=== PATIENT | male | born 1950 | race Caucasian/White ===

== ENCOUNTER 2016-08-08 03:44 | Inpatient (IN) | payer MEDICARE, OTHER ==
[2016-08-08] VITALS (7 sets, daily range): BP systolic 126–164; BP diastolic 57–78
[~2016-08-08] VITALS: Ht 162.6 cm; Wt 59.0 kg
[2016-08-08] MEDS ORDERED: Dicyclomine HCl 10mg/5ml oral soln ORAL ONE (04:00)
[2016-08-08] MEDS ORDERED: Mylanta II UD 30ml ORAL ONE (04:00)
[2016-08-08] MEDS ORDERED: VITAMIN D400 INTLU ORAL (04:04)
[2016-08-08] MEDS ORDERED: METRONIDAZOLE500 MG ORAL (04:04)
[2016-08-08] MEDS ORDERED: PLAVIX75 MG ORAL (04:04)
[2016-08-08] MEDS ORDERED: LOSARTAN POTASS50 MG ORAL (04:04)
[2016-08-08] MEDS ORDERED: COQ-1030 M1 PO (04:04)
[2016-08-08] MEDS ORDERED: VASCEPA1 GM PO (04:04)
[2016-08-08] MEDS ORDERED: CRESTOR20 MG ORAL (04:04)
[2016-08-08] MEDS ORDERED: SYNTHROID25 MCG ORAL (04:04)
[2016-08-08] MEDS ORDERED: METOPROLOL TART50 M1 ORAL (04:04)
[2016-08-08 04:56] LABS: BASOPHILS % (AUTO) 0.7 % (0.0-2.0); EOSINOPHILS % (AUTO) 8.1 % (0.0-3.0); MEAN CORPUSCULAR HEMOGLOBIN 29.2 PG (27.0-31.0); MEAN CORPUSCULAR HGB CONC 32.6 G/DL (32.0-36.0); MEAN CORPUSCULAR VOLUME 90 FL (80-99); MONOCYTES % (AUTO) 10.4 % (1.0-10.0); NEUTROPHILS % (AUTO) 41.8 % (45.0-75.0); PLATELET COUNT 201 K/UL (150-450); RED BLOOD COUNT 4.45 M/UL (4.70-6.10); RED CELL DISTRIBUTION WIDTH 12.4 % (11.6-14.8); WHITE BLOOD COUNT 4.8 K/UL (4.8-10.8)
[2016-08-08 05:14] LABS: ALANINE AMINOTRANSFERASE 8 U/L (3-41); ALBUMIN/GLOBULIN RATIO 1.2 (1.0-2.7); ANION GAP 15 (5-15); ASPARTATE AMINO TRANSFERASE 17 U/L (5-40); CALCIUM 9.1 mg/dL (8.6-10.2); CARBON DIOXIDE 24 mEQ/L (20-30); CHLORIDE 103 mEQ/L (98-107); GLOMERULAR FILTRATION RATE > 60 mL/min (>60); HEMOLYSIS 0; LIPASE 52 U/L (< 60); POTASSIUM 3.6 mEQ/L (3.4-4.9); SODIUM 142 mEQ/L (135-145); TOTAL PROTEIN 6.8 g/dL (6.6-8.7)
--- NOTE | 2016-08-08 05:42 | Emergency Room Report ---
History of Present Illness General Chief Complaint: Male Urogenital Problems Source: Patient Present Illness HPI Patient presents with complaints of epigastric discomfort Nausea Patient has been treated for what sounds to be H. pylori by his primary physician for the past 2 days Taking oral antibiotic Denies any diarrhea or constipation However he has had off-and-on epigastric pain as well Patient this morning noticed change in the color of his urine which appeared dark Denies any dysuria Denies any fall or trauma Patient had colon GI bleeding 5 years ago however has done well since then Allergies: Coded Allergies: No Known Allergies (Unverified , 08/08/16) Patient History Past Medical History: see triage record Pertinent Family History: none Reviewed Nursing Documentation: PMH: Agreed, PSxH: Agreed Nursing Documentation-PMH Hx Cardiac Problems: Yes - HIGH CHOLESTEROL,HEART ATTACK 10 YEARS AGO Hx Hypertension: Yes Review of Systems All Other Systems: negative except mentioned in HPI Physical Exam Vital Signs Date Time Temp Pulse Resp B/P Pulse Ox O2 Delivery O2 Flow Rate FiO2 08/08/16 03:51 97.5 68 16 147/64 97 Room Air Sp02 EP Interpretation: reviewed, normal General Appearance: well appearing, no apparent distress Head: normocephalic, atraumatic Eyes: bilateral eye EOMI, bilateral eye PERRL ENT: hearing grossly normal, normal pharynx, TMs + canals normal, uvula midline Neck: full range of motion, supple, no meningismus, no bony tend Respiratory: lungs clear, normal breath sounds, no rhonchi, no respiratory distress, no retraction, no accessory muscle use Cardiovascular #1: normal peripheral pulses, regular rate, rhythm, no edema, no gallop, no JVD, no murmur Gastrointestinal: normal bowel sounds, non tender, soft, no mass, no organomegaly, non-distended, no guarding, no hernia, no pulsatile mass, no rebound Genitourinary: no CVA tenderness Musculoskeletal: normal inspection Neurologic: oriented x3, responsive, 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 driver III-XII nml as tested, motor strength/ tone normal, sensory intact Psychiatric: mood/affect normal Skin: normal color, no rash, warm/dry, palpation normal Lymphatic: normal inspection, no adenopathy Medical Decision Making Diagnostic Impression: Primary Impression: GI bleeding ER Course With the history exam and presentation, multiple differentials considered, including but not limited to appendicitis, gastritis, cholecystitis, diverticulitis Patient is Hemoccult negative at this time however Given the lightheadedness symptomatically findings Given the patient's previous history of GI bleeding this is still considered high and concerning the patient admitted for further care Labs Test 08/08/16 04:15 08/08/16 05:45 08/08/16 06:27 08/09/16 06:50 White Blood Count 4.8 K/UL (4.8-10.8) 4.9 K/UL (4.8-10.8) Red Blood Count 4.45 M/UL (4.70-6.10) 4.42 M/UL (4.70-6.10) Hemoglobin 13.0 G/DL (14.2-18.0) 13.1 G/DL (14.2-18.0) Hematocrit 39.8 % (42.0-52.0) 40.0 % (42.0-52.0) Mean Corpuscular Volume 90 FL (80-99) 90 FL (80-99) Mean Corpuscular Hemoglobin 29.2 PG (27.0-31.0) 29.7 PG (27.0-31.0) Mean Corpuscular Hemoglobin Concent 32.6 G/DL (32.0-36.0) 32.9 G/DL (32.0-36.0) Red Cell Distribution Width 12.4 % (11.6-14.8) 12.8 % (11.6-14.8) Platelet Count 201 K/UL (150-450) 199 K/UL (150-450) Mean Platelet Volume 6.0 FL (6.5-10.1) 6.2 FL (6.5-10.1) Neutrophils (%) (Auto) 41.8 % (45.0-75.0) 47.9 % (45.0-75.0) Lymphocytes (%) (Auto) 39.0 % (20.0-45.0) 37.6 % (20.0-45.0) Monocytes (%) (Auto) 10.4 % (1.0-10.0) 8.5 % (1.0-10.0) Eosinophils (%) (Auto) 8.1 % (0.0-3.0) 5.4 % (0.0-3.0) Basophils (%) (Auto) 0.7 % (0.0-2.0) 0.5 % (0.0-2.0) Sodium Level 142 mEQ/L (135-145) 141 mEQ/L (135-145) Potassium Level 3.6 mEQ/L (3.4-4.9) 3.9 mEQ/L (3.4-4.9) Chloride Level 103 mEQ/L (98-107) 103 mEQ/L (98-107) Carbon Dioxide Level 24 mEQ/L (20-30) 24 mEQ/L (20-30) Anion Gap 15 (5-15) 14 (5-15) Blood Urea Nitrogen 22 mg/dL (7-23) 15 mg/dL (7-23) Creatinine 1.0 mg/dL (0.7-1.2) 1.0 mg/dL (0.7-1.2) Estimat Glomerular Filtration Rate > 60 mL/min (>60) > 60 mL/min (>60) Glucose Level 144 mg/dL (74-106) 100 mg/dL (74-106) Calcium Level 9.1 mg/dL (8.6-10.2) 9.5 mg/dL (8.6-10.2) Total Bilirubin 0.2 mg/dL (0.0-1.2) Aspartate Amino Transf (AST/SGOT) 17 U/L (5-40) Alanine Aminotransferase (ALT/SGPT) 8 U/L (3-41) Alkaline Phosphatase 61 U/L (40-129) Troponin I < 0.30 ng/mL (<=0.30) Total Protein 6.8 g/dL (6.6-8.7) Albumin 3.8 g/dL (3.5-5.2) Globulin 3.0 g/dL Albumin/Globulin Ratio 1.2 (1.0-2.7) Lipase 52 U/L (< 60) Total Creatine Kinase 130 U/L (38-174) Urine Color Pale yellow Urine Appearance Clear Urine pH 6 (4.5-8.0) Urine Specific [place] 1.010 (1.005-1.035) Urine Protein Negative (NEGATIVE) Urine Glucose (UA) Negative (NEGATIVE) Urine Ketones Negative (NEGATIVE) Urine Occult Blood Negative (NEGATIVE) Urine Nitrite Negative (NEGATIVE) Urine Bilirubin Negative (NEGATIVE) Urine Urobilinogen Normal MG/DL (0.0-1.0) Urine Leukocyte Esterase 1+ (NEGATIVE) Urine RBC 0-2 /HPF (0 - 0) Urine WBC 0-2 /HPF (0 - 0) Urine Squamous Epithelial Cells Occasional /LPF Urine Bacteria Occasional /HPF (NONE) Reticulocyte Count 0.9 % (0.0-2.0) Prothrombin Time 10.8 SEC (9.30-11.50) Prothromb Time International Ratio 1.1 (0.9-1.1) Activated Partial Thromboplast Time 26 SEC (23-33) Iron Level 140 ug/dL (59-158) Total Iron Binding Capacity 392 ug/dL (250-400) Percent Iron Saturation 36 % (15-50) Unsaturated Iron Binding 252 ug/dL (112-346) Ferritin 25 ng/mL (10-230) Carcinoembryonic Antigen 2.8 ng/mL Vitamin B12 Level 554 pg/mL (211-946) Folate 19.9 ng/mL (>3.0) Thyroid Stimulating Hormone (TSH) 2.920 uIU/mL (0.300-4.500) Free Thyroxine 1.15 ng/dL (0.86-1.85) Test 08/10/16 06:00 White Blood Count 5.8 K/UL (4.8-10.8) Red Blood Count 4.18 M/UL (4.70-6.10) Hemoglobin 12.4 G/DL (14.2-18.0) Hematocrit 37.7 % (42.0-52.0) Mean Corpuscular Volume 90 FL (80-99) Mean Corpuscular Hemoglobin 29.6 PG (27.0-31.0) Mean Corpuscular Hemoglobin Concent 32.8 G/DL (32.0-36.0) Red Cell Distribution Width 12.3 % (11.6-14.8) Platelet Count 194 K/UL (150-450) Mean Platelet Volume 6.4 FL (6.5-10.1) Neutrophils (%) (Auto) 63.1 % (45.0-75.0) Lymphocytes (%) (Auto) 26.1 % (20.0-45.0) Monocytes (%) (Auto) 7.2 % (1.0-10.0) Eosinophils (%) (Auto) 3.3 % (0.0-3.0) Basophils (%) (Auto) 0.3 % (0.0-2.0) Sodium Level 141 mEQ/L (135-145) Potassium Level 3.9 mEQ/L (3.4-4.9) Chloride Level 104 mEQ/L (98-107) Carbon Dioxide Level 25 mEQ/L (20-30) Anion Gap 12 (5-15) Blood Urea Nitrogen 16 mg/dL (7-23) Creatinine 0.9 mg/dL (0.7-1.2) Estimat Glomerular Filtration Rate > 60 mL/min (>60) Glucose Level 101 mg/dL (74-106) Calcium Level 9.1 mg/dL (8.6-10.2) Rhythm Strip Diag. Results EP Interpretation: yes Rate: 66 Rhythm: NSR, no PVC's, no ectopy Last Vital Signs Date Time Temp Pulse Resp B/P Pulse Ox O2 Delivery O2 Flow Rate FiO2 08/08/16 04:53 97.5 57 16 137/65 97 Room Air Status: improved Disposition: ADMITTED INPATIENT Condition: Serious Referrals: NON PHYSICIAN (PCP) OLEGARIO RIVERA D.O. August 08, 2016 05:42
[2016-08-08 05:49] LABS: TROPONIN I < 0.30 ng/mL (<=0.30)
[2016-08-08 06:36] LABS: APPEARANCE,URINE CLEAR; KETONES,URINE NEGATIVE (NEGATIVE); LEUKOCYTE ESTERASE ,URINE 1+ (NEGATIVE); NITRITE,URINE NEGATIVE (NEGATIVE); PH,URINE 6 (4.5-8.0); PROTEIN,URINE NEGATIVE (NEGATIVE); UROBILINOGEN,URINE NORMAL MG/DL (0.0-1.0)
[2016-08-08 06:46] LABS: BACTERIA,URINE OCCASIONAL /HPF; RBC,URINE 0-2 /HPF (0 - 0); SQUAMOUS EPITHELIAL CELL,UR OCCASIONAL /LPF (NONE/OCC); WBC,URINE 0-2 /HPF (0 - 0)
[2016-08-08] MEDS ORDERED: Vitamin D 50,000 units cap ORAL SCH (09:00)
[2016-08-08] MEDS: Heparin 5000 units/ml inj SUBQ SCH ×2 (09:00→21:00)
[2016-08-08] MEDS: Levothyroxine 25mcg tab ORAL SCH (10:34)
[2016-08-08] MEDS: Pantoprazole Inj IV SCH (10:34)
[2016-08-08] MEDS: Losartan 50mg tab ORAL SCH (10:35)
--- NOTE | 2016-08-08 13:32 | GI Initial Consult Note ---
KaityAngeles Garland N.PRoland 08/08/16 1332: History of Present Illness General Date patient seen: August 08, 2016 Time patient seen: 10:00 Reason for Hospitalization: Male Urogenital Problems Referring physician: JHONNY SMITH Reason for Consultation: GI BLEED Present Illness HPI Patient presents with complaints of epigastric discomfort Nausea Patient has been treated for what sounds to be H. pylori by his primary physician for the past 2 days Taking oral antibiotic Denies any diarrhea or constipation However he has had off-and-on epigastric pain as well Patient this morning noticed change in the color of his urine which appeared dark Denies any dysuria Denies any fall or trauma Patient had colon GI bleeding 5 years ago however has done well since then GI CONSULT: HPI as noted above. GI consulted for abdominal pain. Pt seen on floor, awake A&Ox4 NAD with c/o of epigastric pain with min relief from Nexium. In addition patient c/o of being unable to fully swallow food where he is s/p video swallow at [facility] approximately 5-6 months ago with unremarkable results. The patient has taken abx multiple times for H. Pylori infection unverified? Hx of abdominal surgery approximately 25+ years ago, pt unsure of exact procedure. Last colonoscopy 5 years ago with unremarkable results per patient. Home Meds Reported Medications Vitamin D (Vitamin D3) 400 Unit Tablet, 5000 UNITS ORAL DAILY, TAB 08/08/16 Ubidecarenone (COQ-10) 30 Mg Capsule, 30 MG PO, CAP 08/08/16 Icosapent Ethyl (VASCEPA) 1 Gm Capsule, 1 GM PO DAILY, CAP 08/08/16 Rosuvastatin Calcium* (CRESTOR*) 20 Mg Tablet, 20 MG ORAL DAILY, TAB 08/08/16 Clopidogrel Bisulfate* (PLAVIX*) 75 Mg Tablet, 75 MG ORAL DAILY, TAB 08/08/16 Metoprolol Tartrate* (METOPROLOL TARTRATE*) 50 Mg Tablet, 50 MG ORAL DAILY, TAB 08/08/16 Losartan Potassium* (LOSARTAN POTASSIUM*) 50 Mg Tablet, 50 MG ORAL DAILY, TAB 08/08/16 Levothyroxine Sodium* (SYNTHROID*) 25 Mcg Tablet, 25 MCG ORAL DAILY, TAB Take in the morning on an empty stomach, at least 30 minutes before food. 08/08/16 Metronidazole* (FLAGYL*) 500 Mg Tablet, 500 MG ORAL THREE TIMES A DAY, TAB 0 Refills 08/08/16 Med list reviewed/reconciled: Yes Allergies: Coded Allergies: No Known Allergies (Unverified , 08/08/16) Patient History History Provided By: Patient PMH Narrative Hx Cardiac Problems: Yes - HIGH CHOLESTEROL,HEART ATTACK 10 YEARS AGO Hx Hypertension: Yes Review of Systems All Other Systems: negative except mentioned in HPI Physical Exam Vital Signs Date Time Temp Pulse Resp B/P Pulse Ox O2 Delivery O2 Flow Rate FiO2 08/08/16 03:51 97.5 68 16 147/64 97 Room Air Sp02 EP Interpretation: reviewed Labs Laboratory Tests Test 08/08/16 04:15 08/08/16 05:45 08/08/16 06:27 White Blood Count 4.8 K/UL (4.8-10.8) Red Blood Count 4.45 M/UL (4.70-6.10) L Hemoglobin 13.0 G/DL (14.2-18.0) L Hematocrit 39.8 % (42.0-52.0) L Mean Corpuscular Volume 90 FL (80-99) Mean Corpuscular Hemoglobin 29.2 PG (27.0-31.0) Mean Corpuscular Hemoglobin Concent 32.6 G/DL (32.0-36.0) Red Cell Distribution Width 12.4 % (11.6-14.8) Platelet Count 201 K/UL (150-450) Mean Platelet Volume 6.0 FL (6.5-10.1) L Neutrophils (%) (Auto) 41.8 % (45.0-75.0) L Lymphocytes (%) (Auto) 39.0 % (20.0-45.0) Monocytes (%) (Auto) 10.4 % (1.0-10.0) H Eosinophils (%) (Auto) 8.1 % (0.0-3.0) H Basophils (%) (Auto) 0.7 % (0.0-2.0) Sodium Level 142 mEQ/L (135-145) Potassium Level 3.6 mEQ/L (3.4-4.9) Chloride Level 103 mEQ/L (98-107) Carbon Dioxide Level 24 mEQ/L (20-30) Anion Gap 15 (5-15) Blood Urea Nitrogen 22 mg/dL (7-23) Creatinine 1.0 mg/dL (0.7-1.2) Estimat Glomerular Filtration Rate > 60 mL/min (>60) Glucose Level 144 mg/dL (74-106) H Calcium Level 9.1 mg/dL (8.6-10.2) Total Bilirubin 0.2 mg/dL (0.0-1.2) Aspartate Amino Transf (AST/SGOT) 17 U/L (5-40) Alanine Aminotransferase (ALT/SGPT) 8 U/L (3-41) Alkaline Phosphatase 61 U/L (40-129) Troponin I < 0.30 ng/mL (<=0.30) Total Protein 6.8 g/dL (6.6-8.7) Albumin 3.8 g/dL (3.5-5.2) Globulin 3.0 g/dL Albumin/Globulin Ratio 1.2 (1.0-2.7) Lipase 52 U/L (< 60) Total Creatine Kinase 130 U/L (38-174) Urine Color Pale yellow Urine Appearance Clear Urine pH 6 (4.5-8.0) Urine Specific [place] 1.010 (1.005-1.035) Urine Protein Negative (NEGATIVE) Urine Glucose (UA) Negative (NEGATIVE) Urine Ketones Negative (NEGATIVE) Urine Occult Blood Negative (NEGATIVE) Urine Nitrite Negative (NEGATIVE) Urine Bilirubin Negative (NEGATIVE) Urine Urobilinogen Normal MG/DL (0.0-1.0) Urine Leukocyte Esterase 1+ (NEGATIVE) H Urine RBC 0-2 /HPF (0 - 0) H Urine WBC 0-2 /HPF (0 - 0) Urine Squamous Epithelial Cells Occasional /LPF Urine Bacteria Occasional /HPF (NONE) General Appearance: well appearing, no apparent distress, alert Head: normocephalic EENT: normal ENT inspection Neck: full range of motion, supple Respiratory: normal inspection, normal breath sounds, no respiratory distress Cardiovascular: normal rate Gastrointestinal: normal inspection, non tender, soft Rectal: deferred Genitourinary: normal inspection, no CVA tenderness Musculoskeletal: normal inspection, back normal Neurologic: normal inspection, alert, oriented x3 Psychiatric: normal inspection, judgement/insight normal, memory normal Skin: normal inspection, normal color, no rash Lymphatic: normal inspection, no adenopathy Current Medications Current Medications Medications (Trade) Dose Ordered Sig/Isabel Route PRN Reason Start Time Stop Time Status Last Admin Dose Admin Acetaminophen (Tylenol) 650 mg Q4H PRN ORAL Mild Pain (Pain Scale 1-3) 08/08/16 07:15 09/07/16 07:14 Bisacodyl (Dulcolax) 10 mg ONCE ONCE ORAL 08/08/16 16:00 08/08/16 16:01 Clopidogrel Bisulfate (Plavix) 75 mg DAILY ORAL 08/08/16 09:00 09/07/16 08:59 Dextrose (Dextrose 50%) STAT PRN IV Hypoglycemia 08/08/16 07:15 09/07/16 07:14 Ergocalciferol (Drisdol) 50,000 intlu QWEEK ORAL 08/08/16 09:00 09/07/16 08:59 08/08/16 10:32 Heparin Sodium (Porcine) (Heparin 5000 units/ml) 5,000 units EVERY 12 HOURS SUBQ 08/08/16 09:00 09/07/16 08:59 Levothyroxine Sodium (Synthroid) 25 mcg DAILY ORAL 08/08/16 09:00 09/07/16 08:59 08/08/16 10:34 Losartan Potassium (Cozaar) 50 mg DAILY ORAL 08/08/16 09:00 09/07/16 08:59 08/08/16 10:35 Metoprolol Succinate (Toprol XL) 50 mg DAILY ORAL 08/08/16 09:00 09/07/16 08:59 08/08/16 10:34 Ondansetron HCl (Zofran) 4 mg Q6H PRN IVP Nausea & Vomiting 08/08/16 07:15 09/07/16 07:14 Pantoprazole (Protonix) 40 mg DAILY IV 08/08/16 09:00 09/07/16 08:59 08/08/16 10:34 Polyethylene Glycol/ Electrolytes (Nulytely) 4,000 ml ONCE ONCE ORAL 08/08/16 16:00 08/08/16 16:01 Sodium Chloride (0.45% NS 1000ml) 1,000 ml @ 75 mls/hr [id number] IV 08/08/16 08:00 09/07/16 07:59 08/08/16 10:32 GI: Plan Problems: (1) Epigastric abdominal pain (2) Colonoscopy planned (3) Helicobacter pylori (H. pylori) (4) GI bleeding Plan EGD/Colonoscopy scheduled for tomorrow. - CLD, NPO @ [facility]. - Hold Plavix for procedure. anemia work up monitor H&H, transfuse prn ppi fu labs Discussed with Dr. Reyna. Thank you for referring this patient, we will follow. MARA REYNA 08/09/16 1201: History of Present Illness General Reason for Hospitalization: Male Urogenital Problems Present Illness Home Meds Reported Medications Vitamin D (Vitamin D3) 400 Unit Tablet, 5000 UNITS ORAL DAILY, TAB 08/08/16 Ubidecarenone (COQ-10) 30 Mg Capsule, 30 MG PO, CAP 08/08/16 Icosapent Ethyl (VASCEPA) 1 Gm Capsule, 1 GM PO DAILY, CAP 08/08/16 Rosuvastatin Calcium* (CRESTOR*) 20 Mg Tablet, 20 MG ORAL DAILY, TAB 08/08/16 Clopidogrel Bisulfate* (PLAVIX*) 75 Mg Tablet, 75 MG ORAL DAILY, TAB 08/08/16 Metoprolol Tartrate* (METOPROLOL TARTRATE*) 50 Mg Tablet, 50 MG ORAL DAILY, TAB 08/08/16 Losartan Potassium* (LOSARTAN POTASSIUM*) 50 Mg Tablet, 50 MG ORAL DAILY, TAB 08/08/16 Levothyroxine Sodium* (SYNTHROID*) 25 Mcg Tablet, 25 MCG ORAL DAILY, TAB Take in the morning on an empty stomach, at least 30 minutes before food. 08/08/16 Metronidazole* (FLAGYL*) 500 Mg Tablet, 500 MG ORAL THREE TIMES A DAY, TAB 0 Refills 08/08/16 Allergies: Coded Allergies: No Known Allergies (Unverified , 08/08/16) GI: Plan Plan The patient was seen and examined at bedside and all new and available data was reviewed in the patients chart. I agree with the above findings, impression and plan. (Patient seen earlier today. Signature stamp does not reflect patient encounter time.). -Shameka Gomez MDh Garland N.PRoland August 08, 2016 13:32 MARA REYNA August 09, 2016 12:01
[2016-08-08] MEDS ORDERED: Bisacodyl EC 5mg tab ORAL ONE (16:00)
[2016-08-08] MEDS ORDERED: Polyethylene Glycol 238gm bottle ORAL ONE (16:00)
[2016-08-08] MEDS ORDERED: Magnesium Citrate Liq Btl ORAL ONE (16:00)
[2016-08-08] MEDS ORDERED: Nulytely 4L ORAL ONE (16:00)
[2016-08-08] MEDS ORDERED: 1/2 NS 1000ml IV ONE (18:02)
--- NOTE | 2016-08-08 22:16 | History & Physical ---
History and Physical History & Physicial H&P dictated [id number] JHONNY SMITH M.D. August 08, 2016 22:16
[2016-08-09] VITALS (10 sets, daily range): BP systolic 124–158; BP diastolic 58–79
[2016-08-09 08:23] LABS: BASOPHILS % (AUTO) 0.5 % (0.0-2.0); EOSINOPHILS % (AUTO) 5.4 % (0.0-3.0); LYMPHOCYTES % (AUTO) 37.6 % (20.0-45.0); MEAN CORPUSCULAR HEMOGLOBIN 29.7 PG (27.0-31.0); MEAN CORPUSCULAR HGB CONC 32.9 G/DL (32.0-36.0); MEAN CORPUSCULAR VOLUME 90 FL (80-99); MEAN PLATELET VOLUME 6.2 FL (6.5-10.1); MONOCYTES % (AUTO) 8.5 % (1.0-10.0); NEUTROPHILS % (AUTO) 47.9 % (45.0-75.0); PLATELET COUNT 199 K/UL (150-450); RED BLOOD COUNT 4.42 M/UL (4.70-6.10); RED CELL DISTRIBUTION WIDTH 12.8 % (11.6-14.8); WHITE BLOOD COUNT 4.9 K/UL (4.8-10.8)
[2016-08-09 08:32] LABS: ANION GAP 14 (5-15); CALCIUM 9.5 mg/dL (8.6-10.2); CARBON DIOXIDE 24 mEQ/L (20-30); CHLORIDE 103 mEQ/L (98-107); GLOMERULAR FILTRATION RATE > 60 mL/min (>60); HEMOLYSIS 4; POTASSIUM 3.9 mEQ/L (3.4-4.9); SODIUM 141 mEQ/L (135-145)
[2016-08-09] MEDS: Heparin 5000 units/ml inj SUBQ SCH ×2 (08:42→20:46)
[2016-08-09 08:47] LABS: THYROID STIMULATING HORMONE 2.92 uIU/mL (0.300-4.500)
[2016-08-09] MEDS: Levothyroxine 25mcg tab ORAL SCH (09:04)
[2016-08-09] MEDS: Pantoprazole Inj IV SCH (09:05)
[2016-08-09] MEDS: Losartan 50mg tab ORAL SCH (09:05)
[2016-08-09 09:09] LABS: INR 1.1 (0.9-1.1); PROTHROMBIN TIME 10.8 SEC (9.30-11.50)
--- NOTE | 2016-08-09 12:03 | Pre-Procedure Note/Attestation ---
Pre-Procedure Note/Attestation Complete Prior to Procedure Planned Procedure: not applicable Procedure Narrative: egd/colonoscopy Indications for Procedure Pre-Operative Diagnosis: anemia, gib Attestation I attest that I discussed the nature of the procedure; its benefits; risks and complications; and alternatives (and the risks and benefits of such alternatives ), prior to the procedure, with the patient (or the patient's legal union contract representative). I attest that, if there was a reasonable possibility of needing a blood transfusion, the patient (or the patient's legal union contract representative) was given the [facility] standardized written summary, pursuant to the [place] Blood Safety Act ([place] Health and Safety Code # 1645, as amended). I attest that I re-evaluated the patient just prior to the surgery and that there has been no change in the patient's H&P, except as documented below: MARA WARREN August 09, 2016 12:03
[2016-08-09] MEDS ORDERED: Alfentanil 2ml Inj ONE (12:30)
[2016-08-09] MEDS ORDERED: Propofol 10mg/ml 20ml IV ONE (12:30)
[2016-08-09] MEDS ORDERED: LR 1000ml ONE (12:30)
[2016-08-09] MEDS ORDERED: Midazolam 2mg/2ml Inj ONE (12:30)
[2016-08-09] MEDS ORDERED: Lidocaine 1% MPF 10mg/ml 5ml ONE (12:30)
[2016-08-09] MEDS ORDERED: LR 1000ml 1,000 ML IVLG SCH (12:43)
[2016-08-09] MEDS ORDERED: Hydromorphone 0.5mg/0.5ml inj IVP PRN (12:45)
[2016-08-09] MEDS ORDERED: Oxycodone/Acetaminophen 5-325 ORAL PRN (12:45)
[2016-08-09] MEDS ORDERED: Ketorolac 30mg Inj IV PRN (12:45)
[2016-08-09] MEDS ORDERED: Metoclopramide 10mg/2ml Inj IVP PRN (12:45)
[2016-08-09] MEDS ORDERED: Midazolam 2mg/2ml Inj IVP PRN (12:45)
[2016-08-09] MEDS ORDERED: Atropine Inj 1mg/10ml Syr IV PRN (12:45)
[2016-08-09] MEDS ORDERED: Ketorolac 60mg Inj IV PRN (12:45)
[2016-08-09] MEDS ORDERED: DiphenhydrAMINE 50mg/ml Inj IVP PRN (12:45)
[2016-08-09] MEDS ORDERED: fentaNYL 100 mcg/2 mL IV PRN (12:45)
[2016-08-09] MEDS ORDERED: Meperidine 25mg/0.5ml Inj IV PRN (12:45)
[2016-08-09] MEDS ORDERED: Norco 5mg/325mg tab ORAL PRN (12:45)
[2016-08-09] MEDS ORDERED: LORazepam Inj 2mg/ml 1ml IV PRN (12:45)
[2016-08-09] MEDS ORDERED: Norco 7.5mg/325mg tab ORAL PRN (12:45)
--- NOTE | 2016-08-09 12:51 | Anethesia Preoperative Eval ---
Anesthesia Pre-op PMH/ROS General Date of Evaluation: August 09, 2016 Time of Evaluation: 12:22 Anesthesiologist: Misa ASA Score: ASA 3 Mallampati Score Class I : Soft palate, uvula, fauces, pillars visible Class II: Soft palate, uvula, fauces visible Class III: Soft palate, base of uvula visible Class IV: Only hard plate visible Mallampati Classification: Class II Surgeon: Maribell Diagnosis: Abd Pain Surgical Procedure: EGD/Colonoscopy Anesthesia History: none Family History: no anesthesia problems Allergies: Coded Allergies: No Known Allergies (Unverified , 08/08/16) Medications: see eMAR Past Medical History Cardiovascular: Reports: CAD - MT, HL, HTN Gastrointestinal/Genitourinary: Reports: GERD Endocrine: Reports: hypothyroidism Hematology/Immune: Reports: anemia PSxH Narrative: Bowel SX Anesthesia Pre-op Phys. Exam Physician Exam Last Vital Signs Date Time Temp Pulse Resp B/P Pulse Ox O2 Delivery O2 Flow Rate FiO2 08/09/16 12:15 97.7 58 21 158/67 99 Room Air Constitutional: NAD Neurologic: CN 2-12 intact Cardiovascular: RRR Respiratory: CTA Gastrointestinal: S/NT/ND Airway Exam Mallampati Score: Class II MO: full ROM: full Teeth: intact Anesthesia Pre-op A/P Labs Hematology Test 08/09/16 06:50 White Blood Count 4.9 K/UL (4.8-10.8) Red Blood Count 4.42 M/UL (4.70-6.10) L Hemoglobin 13.1 G/DL (14.2-18.0) L Hematocrit 40.0 % (42.0-52.0) L Mean Corpuscular Volume 90 FL (80-99) Mean Corpuscular Hemoglobin 29.7 PG (27.0-31.0) Mean Corpuscular Hemoglobin Concent 32.9 G/DL (32.0-36.0) Red Cell Distribution Width 12.8 % (11.6-14.8) Platelet Count 199 K/UL (150-450) Mean Platelet Volume 6.2 FL (6.5-10.1) L Neutrophils (%) (Auto) 47.9 % (45.0-75.0) Lymphocytes (%) (Auto) 37.6 % (20.0-45.0) Monocytes (%) (Auto) 8.5 % (1.0-10.0) Eosinophils (%) (Auto) 5.4 % (0.0-3.0) H Basophils (%) (Auto) 0.5 % (0.0-2.0) Reticulocyte Count 0.9 % (0.0-2.0) Coagulation Test 08/09/16 06:50 Prothrombin Time 10.8 SEC (9.30-11.50) Prothromb Time International Ratio 1.1 (0.9-1.1) Activated Partial Thromboplast Time 26 SEC (23-33) Chemistry Test 08/09/16 06:50 Sodium Level 141 mEQ/L (135-145) Potassium Level 3.9 mEQ/L (3.4-4.9) Chloride Level 103 mEQ/L (98-107) Carbon Dioxide Level 24 mEQ/L (20-30) Anion Gap 14 (5-15) Blood Urea Nitrogen 15 mg/dL (7-23) Creatinine 1.0 mg/dL (0.7-1.2) Estimat Glomerular Filtration Rate > 60 mL/min (>60) Glucose Level 100 mg/dL (74-106) Calcium Level 9.5 mg/dL (8.6-10.2) Iron Level 140 ug/dL (59-158) Total Iron Binding Capacity 392 ug/dL (250-400) Percent Iron Saturation 36 % (15-50) Unsaturated Iron Binding 252 ug/dL (112-346) Ferritin 25 ng/mL (10-230) Carcinoembryonic Antigen 2.8 ng/mL Vitamin B12 Level 554 pg/mL (211-946) Folate Pending Thyroid Stimulating Hormone (TSH) 2.920 uIU/mL (0.300-4.500) Free Thyroxine 1.15 ng/dL (0.86-1.85) Risk Assessment & Plan Assessment: ASA 3 Plan: GA Status Change Before Surgery: Brad Tatum MD August 09, 2016 12:51
--- NOTE | 2016-08-09 12:53 | Immediate Post-Op Evaluation ---
Immediate Post-Op Evalulation Immediate Post-Op Evalulation Procedure: EGD/Colonoscopy Date of Evaluation: August 09, 2016 Time of Evaluation: 13:33 IV Fluids: 500 LR Blood Products: 0 Estimated Blood Loss: 1 Urinary Output: 0 Blood Pressure Systolic: 157 Blood Pressure Diastolic: 77 Pulse Rate: 59 Respiratory Rate: 16 O2 Sat by Pulse Oximetry: 100 Temperature (Fahrenheit): 97.1 Pain Score (1-10): 0 Nausea: No Vomiting: No Complications 0 Patient Status: awake, reacts, patent, extubated, none Hydration Status: adequate Brad Bynum MD August 09, 2016 12:53
--- NOTE | 2016-08-09 12:54 | 48 Hour Post Anesthesia Eval ---
Post Anesthesia Evaluation Procedure: EGD/Colonoscopy Date of Evaluation: August 09, 2016 Time of Evaluation: 16:42 Blood Pressure Systolic: 173 0: 73 Pulse Rate: 62 Respiratory Rate: 18 Temperature (Fahrenheit): 98.2 O2 Sat by Pulse Oximetry: 99 Airway: patent Nausea: No Vomiting: No Pain Intensity: 0 Hydration Status: adequate Cardiopulmonary Status: Stable Mental Status/LOC: patient returned to baseline Follow-up Care/Observations: 0 Post-Anesthesia Complications: 0 Follow-up care needed: ready to discharge Brad Bynum MD August 09, 2016 12:54
--- NOTE | 2016-08-09 19:49 | Cardiology Report ---
APPROVED REPORT EKG Measurement Heart [id number] Sinus bradycardia Possible Inferior infarct, age undetermined Abnormal ECG
--- NOTE | 2016-08-09 22:47 | History and Physical Report ---
DATE OF ADMISSION: 08/08/2016 REASON FOR ADMISSION: Epigastric pain, nausea, and vomiting. HISTORY OF PRESENT ILLNESS: This is a 65-year-old male with history of coronary artery disease, CO, vagotomy done 35 years ago in [facility], coronary artery disease on Plavix, hypertension, hyperlipidemia with longstanding history of nausea and some abdominal pain and followed by typist, Dr. Lopez at [facility] and being treated for small intestinal bacterial overgrowth as well as mild gastroparesis identified in gastric emptying, who presented to the emergency room with complaints of epigastric pain, which is burning in nature as well as nausea and vomiting. The patient feels that food has been stuck in throat. He denies any shortness of breath. He is being treated for small intestinal bacterial overgrowth as well as H. pylori with oral antibiotics. He also reports his urine color being very dark, however, did not recall any blood. He has been followed by typist at [facility] and his last colonoscopy and endoscopy done in 2011 possibly secondary to reflux. PAST MEDICAL HISTORY: Coronary artery disease, hypertension, hyperlipidemia, claudication right iliac stenosis, status post right leg angiogram, peripheral arterial disease, presumed small intestinal bacterial overgrowth, mild gastroparesis identified in gastric emptying, and ulcerative esophagitis possibly secondary to reflux. PAST SURGICAL HISTORY: Stent placement right leg angio. MEDICATIONS: Reviewed. SOCIAL HISTORY: Former drinker. Does not drink alcohol or use any drugs. FAMILY HISTORY: Noncontributory. REVIEW OF SYSTEMS: Twelve-point review of systems is negative except for pertinent positives as mentioned above. PHYSICAL EXAMINATION:: GENERAL: No acute distress. The patient is awake, alert, and oriented x3. VITAL SIGNS: In the emergency room, blood pressure 147/64, respiratory rate 16, pulse 68, temperature 97.7 degrees, and pulse oximetry is 97%. HEENT: Normocephalic/atraumatic. NECK: Supple. No JVD. LUNG: Clear to auscultation bilaterally. No crackles, rhonchi, or rales. CARDIOVASCULAR: Regular rate and rhythm. Normal S1 and S2. ABDOMEN: Obese, nontender, and nondistended. EXTREMITIES: No clubbing, cyanosis, or edema. LABORATORY AND DIAGNOSTIC DATA: CBC, white count 4.9, hemoglobin 13.1, and platelet count 109,000. BMP, sodium 141, potassium 3.9, chloride 102, CO2 24, BUN 15, creatinine 1, and glucose 350. Calcium 9.5. Urine 0 to 2 red blood cells. ASSESSMENT AND PLAN: 1. Symptoms of dysphagia likely secondary to ulcerative esophagitis. 2. History of coronary artery disease. 3. Peripheral arterial disease. 4. Hypertension. 5. Hyperlipidemia. PLAN: 1. Admit the patient to Med/Surg. 2. GI consult. 3. We will recommend EGD. 4. PPI. 5. Resume home medications. 6. Hold any NSAIDS. 7. The patient's urine output is normal. Therefore, I did not do urological study, however, we will monitor urine output. Marty Barros MD DR: Valentina JOB#: [id number] CC:
--- NOTE | 2016-08-09 22:59 | Internal Med Progress Note ---
Subjective Physician Name Marty Smith Attending Physician Marty Smith M.D. Current Medications Medications (Trade) Dose Ordered Sig/Isabel Route PRN Reason Start Time Stop Time Status Last Admin Dose Admin Acetaminophen (Tylenol) 650 mg Q4H PRN ORAL Mild Pain (Pain Scale 1-3) 08/08/16 07:15 09/07/16 07:14 Clopidogrel Bisulfate (Plavix) 75 mg DAILY ORAL 08/08/16 09:00 09/07/16 08:59 Dextrose (Dextrose 50%) STAT PRN IV Hypoglycemia 08/08/16 07:15 09/07/16 07:14 Ergocalciferol (Drisdol) 50,000 intlu QWEEK ORAL 08/08/16 09:00 09/07/16 08:59 08/08/16 10:32 Heparin Sodium (Porcine) (Heparin 5000 units/ml) 5,000 units EVERY 12 HOURS SUBQ 08/08/16 09:00 09/07/16 08:59 Levothyroxine Sodium (Synthroid) 25 mcg DAILY ORAL 08/08/16 09:00 09/07/16 08:59 08/09/16 09:04 Losartan Potassium (Cozaar) 50 mg DAILY ORAL 08/08/16 09:00 09/07/16 08:59 08/09/16 09:05 Metoprolol Succinate (Toprol XL) 50 mg DAILY ORAL 08/08/16 09:00 09/07/16 08:59 08/09/16 09:05 Ondansetron HCl (Zofran) 4 mg Q6H PRN IVP Nausea & Vomiting 08/08/16 07:15 09/07/16 07:14 Pantoprazole (Protonix) 40 mg DAILY IV 08/08/16 09:00 09/07/16 08:59 08/09/16 09:05 Allergies: Coded Allergies: No Known Allergies (Unverified , 08/08/16) All Systems: reviewed and negative except above - epigastric pain Objective Last Vital Signs Date Time Temp Pulse Resp B/P Pulse Ox O2 Delivery O2 Flow Rate FiO2 08/09/16 20:00 98.1 55 18 124/64 98 Room Air General Appearance: no apparent distress, alert EENT: PERRL/EOMI, normal ENT inspection Cardiovascular: normal rate, regular rhythm Respiratory/Chest: lungs clear, normal breath sounds Abdomen: non tender, soft Extremities: normal range of motion, non-tender Edema: mild edema Neurologic: alert, oriented x 3, responsive Skin: normal pigmentation, warm/dry Laboratory Tests Test 08/09/16 06:50 White Blood Count 4.9 K/UL (4.8-10.8) Red Blood Count 4.42 M/UL (4.70-6.10) L Hemoglobin 13.1 G/DL (14.2-18.0) L Hematocrit 40.0 % (42.0-52.0) L Mean Corpuscular Volume 90 FL (80-99) Mean Corpuscular Hemoglobin 29.7 PG (27.0-31.0) Mean Corpuscular Hemoglobin Concent 32.9 G/DL (32.0-36.0) Red Cell Distribution Width 12.8 % (11.6-14.8) Platelet Count 199 K/UL (150-450) Mean Platelet Volume 6.2 FL (6.5-10.1) L Neutrophils (%) (Auto) 47.9 % (45.0-75.0) Lymphocytes (%) (Auto) 37.6 % (20.0-45.0) Monocytes (%) (Auto) 8.5 % (1.0-10.0) Eosinophils (%) (Auto) 5.4 % (0.0-3.0) H Basophils (%) (Auto) 0.5 % (0.0-2.0) Reticulocyte Count 0.9 % (0.0-2.0) Prothrombin Time 10.8 SEC (9.30-11.50) Prothromb Time International Ratio 1.1 (0.9-1.1) Activated Partial Thromboplast Time 26 SEC (23-33) Sodium Level 141 mEQ/L (135-145) Potassium Level 3.9 mEQ/L (3.4-4.9) Chloride Level 103 mEQ/L (98-107) Carbon Dioxide Level 24 mEQ/L (20-30) Anion Gap 14 (5-15) Blood Urea Nitrogen 15 mg/dL (7-23) Creatinine 1.0 mg/dL (0.7-1.2) Estimat Glomerular Filtration Rate > 60 mL/min (>60) Glucose Level 100 mg/dL (74-106) Calcium Level 9.5 mg/dL (8.6-10.2) Iron Level 140 ug/dL (59-158) Total Iron Binding Capacity 392 ug/dL (250-400) Percent Iron Saturation 36 % (15-50) Unsaturated Iron Binding 252 ug/dL (112-346) Ferritin 25 ng/mL (10-230) Carcinoembryonic Antigen 2.8 ng/mL Vitamin B12 Level 554 pg/mL (211-946) Folate Pending Thyroid Stimulating Hormone (TSH) 2.920 uIU/mL (0.300-4.500) Free Thyroxine 1.15 ng/dL (0.86-1.85) Intake and Output 08/08/16 08/09/16 19:00 07:00 Intake Total 1650 ml 750 ml Balance 1650 ml 750 ml Intake Oral 1200 ml IV Total 450 ml 750 ml # Voids 4 # Bowel Movements 1 Assessment/Plan Assessment/Plan ASSESSMENT AND PLAN: 1. Symptoms of dysphagia likely secondary to ulcerative esophagitis. 2. History of coronary artery disease. 3. Peripheral arterial disease. 4. Hypertension. 5. Hyperlipidemia. PLAN: 1. Med/Surg. 2. GI consult. 3. f/u path 4. PPI. 5. Resume home medications. 6. Hold any NSAIDS. 7. d/c planning tomorrow if tolerating diet s/p EGD SUMMARY OF FINDINGS: 1. Gastritis. 2. Ulcerative esophagitis. 3. Distal esophageal ring. 4. Small hiatal hernia. 5. Internal hemorrhoids. 6. Six colonic polyps removed, see above for details. MARTY SMITH M.D. August 09, 2016 22:59
--- NOTE | 2016-08-09 23:47 | Procedure Note ---
DATE OF PROCEDURE: 08/09/2016 SURGEON: El Reyna M.D. PROCEDURE: Upper endoscopy with biopsy and colonoscopy with biopsy. ANESTHESIOLOGIST: Brad Bynum M.D. INSTRUMENT: Olympus adult flexible upper endoscope and colonoscope. INDICATION: Abdominal pain, screening colonoscopy evaluation, and dysphagia. REASON FOR PROCEDURE: The procedure, risks, benefits, and possible consequences, including hemorrhage, aspiration, perforation and infection, and alternative treatments, were explained to the patient/legal guardian by Dr. El Reyna and the patient/legal guardian understood and accepted these risks. DESCRIPTION OF PROCEDURE: After informed consent was obtained and the patient was adequately sedated, the Olympus upper endoscope was advanced from mouth into the second portion of duodenum and retroflexion was performed in the stomach. The patient has evidence of distal esophageal ring and distal esophagitis with ulceration. This also was biopsied. The patient also had evidence of small hiatal hernia. In the stomach, there was diffuse gastritis. Random biopsies from antrum was obtained to rule out H. pylori infection. At this time, the upper endoscope was retrieved and the patient was turned over for colonoscopy. First, a rectal was performed, which was normal. Then, the scope was advanced from rectum into the cecum documented by appendiceal orifice, ileocecal valve, and right upper quadrant palpation. Quality of prep was very good. The patient had total of six polyps removed in this colonoscopy examination, two from the rectosigmoid area, one from the ascending, one from transverse colon, one from sigmoid colon, two from transverse colon and sigmoid colon removed with a snare polypectomy technique. The rest of them with cold biopsy forceps technique. The rest of the examination was within normal limits. There was no mass. There was no obvious bleeding. Retroflexion of rectum showed evidence of internal hemorrhoids. The patient tolerated the procedure very well without any complication. SUMMARY OF FINDINGS: 1. Gastritis. 2. Ulcerative esophagitis. 3. Distal esophageal ring. 4. Small hiatal hernia. 5. Internal hemorrhoids. 6. Six colonic polyps removed, see above for details. RECOMMENDATIONS: The patient needs to be on a PPI and Carafate. Follow biopsy results. Needs to follow as an outpatient in the office. I recommend repeat colonoscopy in three years given six polyps. I want to thank, Dr. Marty Barros, for this kind referral. lE Reyna M.D. DR: HERNÁN JOB#: [id number] CC: Marty Barros MD
[2016-08-10] VITALS: BP 120/66
[2016-08-10 04:00] VITALS: BP 118/70
[2016-08-10 07:05] LABS: ANION GAP 12 (5-15); CALCIUM 9.1 mg/dL (8.6-10.2); CARBON DIOXIDE 25 mEQ/L (20-30); CHLORIDE 104 mEQ/L (98-107); CREATININE 0.9 mg/dL (0.7-1.2); GLOMERULAR FILTRATION RATE > 60 mL/min (>60); HEMOLYSIS 6; POTASSIUM 3.9 mEQ/L (3.4-4.9); SODIUM 141 mEQ/L (135-145)
[2016-08-10 07:08] LABS: BASOPHILS % (AUTO) 0.3 % (0.0-2.0); EOSINOPHILS % (AUTO) 3.3 % (0.0-3.0); LYMPHOCYTES % (AUTO) 26.1 % (20.0-45.0); MEAN CORPUSCULAR HEMOGLOBIN 29.6 PG (27.0-31.0); MEAN CORPUSCULAR HGB CONC 32.8 G/DL (32.0-36.0); MEAN CORPUSCULAR VOLUME 90 FL (80-99); MEAN PLATELET VOLUME 6.4 FL (6.5-10.1); MONOCYTES % (AUTO) 7.2 % (1.0-10.0); NEUTROPHILS % (AUTO) 63.1 % (45.0-75.0); PLATELET COUNT 194 K/UL (150-450); RED BLOOD COUNT 4.18 M/UL (4.70-6.10); RED CELL DISTRIBUTION WIDTH 12.3 % (11.6-14.8); WHITE BLOOD COUNT 5.8 K/UL (4.8-10.8)
[2016-08-10 08:15] VITALS: BP 126/65
[2016-08-10] MEDS: Heparin 5000 units/ml inj SUBQ SCH (09:00)
[2016-08-10] MEDS: Pantoprazole Inj IV SCH (09:00)
[2016-08-10] MEDS: Losartan 50mg tab ORAL SCH (09:00)
[2016-08-10] MEDS: Levothyroxine 25mcg tab ORAL SCH (09:00)
[2016-08-10] MEDS ORDERED: PROTONIX40 MG ORAL (11:03)
[2016-08-10] MEDS ORDERED: CARAFATE1 G1 ORAL (11:04)
--- NOTE | 2016-08-10 11:24 | GI Progress Note ---
Assessment/Plan Problems: (1) Colon polyps ICD Codes: K63.5 - Polyp of colon SNOMED: 65769316 (2) Ulcerative esophagitis ICD Codes: K22.10 - Ulcer of esophagus without bleeding SNOMED: 700883361 (3) GI bleeding ICD Codes: K92.2 - Gastrointestinal hemorrhage, unspecified SNOMED: 59365547 (4) Colonoscopy planned SNOMED: 399467794 (5) Epigastric abdominal pain ICD Codes: R10.13 - Epigastric pain SNOMED: 44045595 Status: stable Status Narrative Discussed with Dr. Reyna. Assessment/Plan SUMMARY OF FINDINGS: 1. Gastritis. 2. Ulcerative esophagitis. 3. Distal esophageal ring. 4. Small hiatal hernia. 5. Internal hemorrhoids. 6. Six colonic polyps removed. RECOMMENDATIONS: ok for DC per GI standpoint Rx protonix and carafate given to RN x 1 month. fu biopsy results as outpatient. repeat colon x 3 years Thank you for this kind referral. Subjective Gastrointestinal/Abdominal: Reports: no symptoms Objective Last 24 Hour Vital Signs Date Time Temp Pulse Resp B/P Pulse Ox O2 Delivery O2 Flow Rate FiO2 08/10/16 08:15 97.9 68 23 126/65 97 Room Air 08/10/16 04:00 98.0 66 20 118/70 Room Air 08/10/16 00:00 98.1 64 18 120/66 98 Room Air 08/09/16 20:00 98.1 55 18 124/64 98 Room Air 08/09/16 16:06 98.1 59 21 131/58 99 Room Air 08/09/16 13:45 97.4 58 20 157/76 99 Room Air 08/09/16 13:40 55 18 158/74 99 Room Air 08/09/16 13:30 57 23 155/72 100 Room Air 08/09/16 13:28 62 18 99 08/09/16 13:27 59 16 100 08/09/16 13:22 97.1 58 24 157/77 100 Room Air 08/09/16 12:15 97.7 58 21 158/67 99 Room Air Intake and Output 08/09/16 08/10/16 19:00 07:00 Intake Total 1280 ml 420 ml Output Total 0 ml Balance 1280 ml 420 ml Intake Oral 480 ml 420 ml IV Total 800 ml Output Estimated Blood Loss 0 ml # Voids 5 Laboratory Tests Test 5/24/17 06:00 White Blood Count 5.8 K/UL (4.8-10.8) Red Blood Count 4.18 M/UL (4.70-6.10) L Hemoglobin 12.4 G/DL (14.2-18.0) L Hematocrit 37.7 % (42.0-52.0) L Mean Corpuscular Volume 90 FL (80-99) Mean Corpuscular Hemoglobin 29.6 PG (27.0-31.0) Mean Corpuscular Hemoglobin Concent 32.8 G/DL (32.0-36.0) Red Cell Distribution Width 12.3 % (11.6-14.8) Platelet Count 194 K/UL (150-450) Mean Platelet Volume 6.4 FL (6.5-10.1) L Neutrophils (%) (Auto) 63.1 % (45.0-75.0) Lymphocytes (%) (Auto) 26.1 % (20.0-45.0) Monocytes (%) (Auto) 7.2 % (1.0-10.0) Eosinophils (%) (Auto) 3.3 % (0.0-3.0) H Basophils (%) (Auto) 0.3 % (0.0-2.0) Sodium Level 141 mEQ/L (135-145) Potassium Level 3.9 mEQ/L (3.4-4.9) Chloride Level 104 mEQ/L (98-107) Carbon Dioxide Level 25 mEQ/L (20-30) Anion Gap 12 (5-15) Blood Urea Nitrogen 16 mg/dL (7-23) Creatinine 0.9 mg/dL (0.7-1.2) Estimat Glomerular Filtration Rate > 60 mL/min (>60) Glucose Level 101 mg/dL (74-106) Calcium Level 9.1 mg/dL (8.6-10.2) Height (Feet): 5 Height (Inches): 4.00 Weight (Pounds): 130 General Appearance: no apparent distress, alert Cardiovascular: normal rate Respiratory/Chest: normal breath sounds, no respiratory distress Abdominal Exam: normal bowel sounds, non tender, soft Extremities: normal range of motion Angeles Briceno N.P. August 10, 2016 11:24
[2016-08-10 12:15] VITALS: BP 126/58
--- NOTE | 2016-08-10 16:45 | Discharge Summary ---
Discharge Summary Hospital Course Date of Admission August 08, 2016 at 05:49 Date of Discharge August 10, 2016 at 14:11 Admitting Diagnosis epigastric pain HPI Jona Brown is a 65 year old male who was admitted on August 08, 2016 at 05: 49 for Epigastric pain s/p EGD that showed ulcerative esophagitis. Started on PPI. He had c/o dark urine but Ua neg for UTI or blood. stable for d/c Procedures egd - ulcerative esophagitis Hospital Course Jona Brown is a 65 year old male who was admitted on August 08, 2016 at 05: 49 for Epigastric pain s/p EGD that showed ulcerative esophagitis. Started on PPI. He had c/o dark urine but Ua neg for UTI or blood. stable for d/c Discharge Medications Continued Medications: Clopidogrel Bisulfate* (Plavix*) 75 Mg Tablet 75 MG ORAL DAILY, TAB Levothyroxine Sodium* (Synthroid*) 25 Mcg Tablet 25 MCG ORAL DAILY, TAB Take in the morning on an empty stomach, at least 30 minutes before food. Losartan Potassium* (Losartan Potassium*) 50 Mg Tablet 50 MG ORAL DAILY, TAB Metoprolol Tartrate* (Metoprolol Tartrate*) 50 Mg Tablet 50 MG ORAL DAILY, TAB Pantoprazole* (Protonix*) 40 Mg Tablet.dr 40 MG ORAL DAILY, TAB Sucralfate* (Carafate*) 1 Gm Tablet 1 GM ORAL BID, TAB Vitamin D (Vitamin D3) 400 Unit Tablet 5000 UNITS ORAL DAILY, TAB Discharge Condition Upon Discharge: stable Discharge Disposition Patient was discharged to Home (01) Discharge Diagnoses: JHONNY SMITH M.D. August 10, 2016 16:45
== END 2016-08-10 14:11 | disposition home or self-care (01) | DRG 382 ==
LOC: ENRESERVDT → ENRESERVTM → EMR 04:05 → 4E 05:49 → EDBEDREQ 06:20
DX: K22.10 Ulcer of esophagus without bleeding (principal); K22.2 Esophageal obstruction; I10 Essential (primary) hypertension; I25.10 Atherosclerotic heart disease of native coronary artery without angina pectoris; I25.2 Old myocardial infarction; E78.5 Hyperlipidemia, unspecified; K29.70 Gastritis, unspecified, without bleeding; K44.9 Diaphragmatic hernia without obstruction or gangrene; Z79.02 Long term (current) use of antithrombotics/antiplatelets; D12.2 Benign neoplasm of ascending colon; D12.7 Benign neoplasm of rectosigmoid junction; D12.3 Benign neoplasm of transverse colon; K64.8 Other hemorrhoids
CPT/HCPCS: 36415; 80048; 80053; 81003; 82378; 82550; 82607; 82728; 82746; 83540; 83550; 83690; 84439; 84443; 84484; 85025; 85044; 85610; 85730; 93005; 94003; 94150; J2250; J3490

== ENCOUNTER 2016-09-13 08:54 | Outpatient (CLI) | payer MEDICARE, OTHER ==
[~2016-09-13 08:54] MED LIST: CARAFATE1 G1 ORAL; COQ-1030 M1 PO; CRESTOR20 MG ORAL; LOSARTAN POTASS50 MG ORAL; METOPROLOL TART50 M1 ORAL; METRONIDAZOLE500 MG ORAL; PLAVIX75 MG ORAL; PROTONIX40 MG ORAL; SYNTHROID25 MCG ORAL; VASCEPA1 GM PO; VITAMIN D400 INTLU ORAL
--- NOTE | 2016-09-13 17:30 | GI Progress Note ---
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 Reyna. Assessment/Plan SUMMARY OF FINDINGS: 1. Gastritis. 2. Ulcerative esophagitis. 3. Distal esophageal ring. 4. Small hiatal hernia. 5. Internal hemorrhoids. 6. Six colonic polyps removed, see above for details. RECOMMENDATIONS: dx with Barretts esophagus, repeat EGD x 1 year PPI daily rx amitiza RTC x 6 months repeat colonoscopy in 3 years given 6 polyps Subjective Gastrointestinal/Abdominal: Reports: no symptoms Subjective here for procedure review Objective T 97.6 BP 147/72 P 55 94 RA General Appearance: no apparent distress, alert Cardiovascular: normal peripheral pulses, normal rate Respiratory/Chest: normal breath sounds, no respiratory distress Abdominal Exam: normal bowel sounds, non tender, soft Extremities: normal range of motion Angeles Briceno N.P. Sep 13, 2016 17:30
== END 2016-09-13 09:30 | disposition home or self-care (01) ==
LOC: PAN 08:54
DX: K22.70 Barrett's esophagus without dysplasia (principal); K59.00 Constipation, unspecified; K63.5 Polyp of colon; K22.10 Ulcer of esophagus without bleeding; K44.9 Diaphragmatic hernia without obstruction or gangrene; K29.70 Gastritis, unspecified, without bleeding; K64.8 Other hemorrhoids
CPT/HCPCS: 99211

== ENCOUNTER 2017-03-14 23:58 | Emergency (ER) | payer MEDICARE, OTHER ==
[~2017-03-14] VITALS: Ht 165.1 cm; Wt 63.5 kg
[2017-03-15 00:15] VITALS: BP 149/60
[2017-03-15] MEDS ORDERED: FABB TABLET1 EACH PO (00:16)
--- NOTE | 2017-03-15 00:26 | Emergency Room Report ---
History of Present Illness General Chief Complaint: Laceration Source: Patient Present Illness HPI This is a 66-year-old gentleman with history of CAD and on Plavix. He present with chief complaint of laceration to the forehead and bleeding. He got up to use the restroom and did not see the door. He ran into the edge of the door and sustained a laceration to the mid forehead. Unable to stop the bleeding. No loss of consciousness. No other injury. minimal pain Allergies: Coded Allergies: No Known Allergies (Unverified , 08/08/16) Patient History Past Medical History: see triage record, old chart reviewed, CAD Past Surgical History: other Pertinent Family History: none Social History: Denies: drug use Immunizations: other Reviewed Nursing Documentation: PMH: Agreed, PSxH: Agreed Nursing Documentation-PMH Hx Cardiac Problems: Yes - HIGH CHOLESTEROL,HEART ATTACK 10 YEARS AGO Hx Hypertension: Yes Hx Cancer: No Hx Gastrointestinal Problems: Yes Hx Neurological Problems: No Review of Systems Eye: Denies: eye pain, blurred vision ENT: Denies: ear pain, nose congestion, throat swelling Respiratory: Denies: cough, shortness of breath Cardiovascular: Denies: chest pain, palpitations Gastrointestinal: Denies: abdominal pain, diarrhea, nausea, vomiting Musculoskeletal: Denies: back pain, joint pain Skin: Denies: rash Neurological: Denies: headache, numbness Endocrine: Denies: increased thirst, increased urine Hematologic/Lymphatic: Denies: easy bruising All Other Systems: negative except mentioned in HPI Physical Exam Vital Signs Date Time Temp Pulse Resp B/P (MAP) Pulse Ox O2 Delivery O2 Flow Rate FiO2 03/15/17 00:06 97.9 52 18 149/60 98 Room Air vitals unremarkable Sp02 EP Interpretation: reviewed, normal General Appearance: well appearing, no apparent distress, alert Head: normocephalic, other - 1 cm laceratiom in between the eyebrow Eyes: bilateral eye PERRL, bilateral eye EOMI ENT: hearing grossly normal, normal pharynx Neck: full range of motion, supple, no meningismus Respiratory: chest non-tender, lungs clear, normal breath sounds Cardiovascular #1: regular rate, rhythm, no murmur Gastrointestinal: normal bowel sounds, non tender, no mass, no organomegaly, no bruit, non-distended Musculoskeletal: back normal, gait/station normal, normal range of motion Psychiatric: mood/affect normal Skin: warm/dry Procedures Laceration/Wound Repair Laceration/Wound Repair : Consent: Verbal Wound Location: face Wound's Depth, Shape: linear Wound Length (cm): 1 Wound Explored: clean Irrigated w/ Saline (ccs): 500 Anesthesia: 1% Lidocaine Volume Anesthetic (ccs): 1 Wound Repaired With: sutures Suture Size/Type: 5:0, other - chromic Number of Sutures: 2 Patient Tolerated: Well Complications: None Medical Decision Making Diagnostic Impression: Primary Impression: Laceration of face Qualified Codes: S01.81XA - Laceration without foreign body of other part of head, initial encounter ER Course Patient presents with a laceration of his forehead/face. No evidence of foreign body. He does not want CT scan. We'll discharge him. Last Vital Signs Date Time Temp Pulse Resp B/P (MAP) Pulse Ox O2 Delivery O2 Flow Rate FiO2 03/15/17 00:06 97.9 52 18 149/60 98 Room Air Status: improved Disposition: HOME, SELF-CARE Condition: Stable Patient Instructions: Laceration Care, Adult Additional Instructions: Followup with your Dr. in 7 days. Return for confusion, vomiting, headache or any concern. Sutures will fall off. ANGELA WARREN M.D. Mar 15, 2017 00:26
[2017-03-15 00:45] VITALS: BP 149/60
== END 2017-03-15 00:45 | disposition home or self-care (01) ==
LOC: EMR 03-15 00:15
DX: S01.81XA Laceration without foreign body of other part of head, initial encounter (principal); W22.8XXA Striking against or struck by other objects, initial encounter; Y92.002 Bathroom of unspecified non-institutional (private) residence as the place of occurrence of the external cause; I10 Essential (primary) hypertension; I25.10 Atherosclerotic heart disease of native coronary artery without angina pectoris; Z79.02 Long term (current) use of antithrombotics/antiplatelets
CPT/HCPCS: 99283